=== PATIENT | male | born 1950 | race Caucasian/White ===

== ENCOUNTER 2016-11-12 03:31 | Emergency (ER) | payer BC ==
[2016-11-12] MEDS ORDERED: Albuterol 0.083% 2.5 MG/3 ML Neb Soln ONE ×2 (03:39→03:54)
[2016-11-12] MEDS ORDERED: Midazolam 1 MG/ML 2 ML SDV ONE ×2 (03:40→05:16)
[2016-11-12] MEDS ORDERED: fentaNYL 100 MCG/2 ML SDV ONE ×6 (03:40→06:50)
[2016-11-12] MEDS ORDERED: Lidocaine 2% with EPINEPHrine 1:100,000 20 ML MDV ONE ×2 (03:40→05:24)
--- NOTE | 2016-11-12 03:42 | EDM.PDOC ---
ED HISTORY OF PRESENT ILLNESS - General Chief Complaint: Chest Pain Stated Complaint: CHEST PAIN Time Seen by Provider: 11/12/16 03:31 Source of Information: Reports: Patient History Limitations: Reports: No limitations - History of Present Illness INITIAL COMMENTS - FREE TEXT/NARRATIVE: The patient presents with complaint of substernal aching and pressure and shortness of breath that began at about midnight and was up to 8/10 in severity initially. He was given 324 mg chewable aspirin and nitroglycerin 0.4 mg SL x 3 per EMS in transport and he takes 325 mg of aspirin daily as well. The chest pain improved to 2/10 on arrival after nitroglycerin. He denies a history of FL or stroke but has CAD with LOGAN x 3 at [facility] 3 years ago. He denies a history of DVT or PE. He has cardiac risk factors of smoking history and smoke 1 ppd for more than 20 years and quit 20 years ago, HTN, HLD, and obesity. - Related Data Allergies/ADRs: Allergies Allergy/AdvReac Type Severity Reaction Status Date / Time No Known Allergies Allergy Verified 11/12/16 03:36 Home Meds: Home Meds Clopidogrel Bisulfate [Clopidogrel] 75 mg PO QAM 10/17/13 [History] Ketoconazole [Nizoral 2% Crm] 1 applic TOP ASDIRECTED PRN 10/17/13 [History] Moexipril HCl [Moexipril] 15 mg PO QAM 10/17/13 [History] Nitroglycerin [Nitrostat] 0.4 mg PO ASDIRECTED PRN 10/17/13 [History] Simvastatin 20 mg PO QPM 10/17/13 [History] Aspirin 325 mg PO DAILY #90 tablet 10/18/13 [Rx] Metoprolol Succinate [Toprol XL] 25 mg PO DAILY 11/12/16 [History] Past Medical History Cardiovascular History: Reports: CAD, High cholesterol, Hypertension, Stents (3 stents in 2013 at [facility].) Social & Family History - Tobacco Use Years of Tobacco use: 30 Used Tobacco, but Quit: Yes Month Tobacco Last Used: November 12 Second Hand Smoke Exposure: No - Alcohol Use Days Per Week of Alcohol Use: 2 Number of Drinks Per Day: 0 Total Drinks Per Week: 0 - Recreational Drug Use Recreational Drug Use: No Recreational Drug Last Use: 3 coffee per day, occasional pop - Living Situation & Occupation Living situation: Reports: (In 1975, 2 children) 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 ED EXAM, GENERAL - Physical Exam Exam: See Below Exam Limited By: No limitations General Appearance: alert, WD/WN, no apparent distress Eye Exam: bilateral eye: EOMI, normal inspection, PERRL Ears: normal external exam, normal canal, hearing grossly normal, normal TMs Ear Exam: bilateral ear: auricle normal, canal normal, TM normal Nose: normal inspection, normal mucosa, no blood Throat/Mouth: Normal inspection, Normal lips, Normal teeth, Normal gums, Normal oropharynx, Normal voice, No airway compromise Head: atraumatic, normocephalic Neck: normal inspection, supple, non-tender, full range of motion. No: lymphadenopathy (L), lymphadenopathy (R) Respiratory/Chest: no accessory muscle use, chest non-tender, respiratory distress, wheezing (Expiratory, bilateral.). No: crackles, rales, rhonchi, stridor, retractions Cardiovascular: normal peripheral pulses, regular rate, rhythm, no edema, no gallop, no murmur, no rub Peripheral Pulses: 2+: radial (L), radial (R), dorsalis pedis (L), dorsalis pedis (R) GI/Abdominal: normal bowel sounds, soft, non tender, no organomegaly, no distention Back Exam: normal inspection, full range of motion. No: CVA tenderness (L), CVA tenderness (R), paraspinal tenderness, vertebral tenderness Extremities: normal inspection, normal range of motion, non-tender, no pedal edema, normal capillary refill Neurological: alert, oriented, CN II-XII intact, normal cognition, normal gait, normal reflexes, no motor/sensory deficits Psychiatric: normal affect, normal mood Skin Exam: Warm, Dry, Intact, Normal color, No rash Lymphatic: no adenopathy ED CHEST TUBE INSERTION - Chest Tube Insertion Chest tube location: right Site: anterior axillary line Tube size: 32Fr Prep: CDC/MBT guidelines, sterile drapes, betadine Local anesthesia - Lidocaine (Xylocaine): 2% with epi Local anesthetic volume: 5cc Gutiérrez of air heard: Yes Drainage: bloody, small amount Number of Attempts: 1 Tube sutured to skin: Yes Post procedure tube position confirmed by: by CXR, by provider Tube connected to suction: Yes Chest Tube Comment: Patient tolerated well with no complications. Tube advanced to 18 cm at the chest. EKG INTERPRETATION EKG Date: 11/12/16 Rhythm: NSR [place]: normal P-wave: present QRS: normal ST-T: normal QT: normal Comparison: NA - no prior EKG EKG Interpretation Comments: No ST elevation. Course - Vital Signs Last Recorded V/S: Last Vital Signs Temp 36.9 C 11/12/16 03:35 Pulse 93 11/12/16 04:28 Resp 20 11/12/16 04:28 BP 121/82 11/12/16 04:28 Pulse Ox 93 L 11/12/16 04:00 - Orders/Labs/Meds Orders: Active Orders 24 hr Category Date Time Status EKG Documentation Completion [RC] ASDIRECTED Care 11/12/16 03:36 Active RT Aerosol Therapy [RC] ASDIRECTED Care 11/12/16 03:53 Active RT Aerosol Therapy [RC] ASDIRECTED Care 11/12/16 04:13 Active Chest 1V Frontal [CR] Stat Exams 11/12/16 03:36 Taken Chest 1V Frontal [CR] Stat Exams 11/12/16 06:24 Taken Chest 1V Frontal [CR] Stat Exams 11/12/16 06:44 Taken Chest 1V Frontal [CR] Stat Exams 11/12/16 07:12 Ordered Chest PE [Ang Chest] [CT] Stat Exams 11/12/16 04:12 Taken Sodium Chloride 0.9% [Normal Saline] 1,000 ml Med 11/12/16 04:00 Active IV ASDIRECTED Medication Orders Sodium Chloride (Normal Saline) 1,000 mls @ 100 mls/hr IV ASDIRECTED HOLLIS Last Admin: 11/12/16 03:56 Dose: 100 mls/hr Labs: Laboratory Tests 11/12/16 11/12/16 11/12/16 Range/Units 03:45 03:45 03:45 WBC 6.8 (4.0-10.2) K/uL RBC 4.95 (4.33-5.41) M/uL Hgb 14.5 (13.1-16.8) g/dL Hct 44.5 (39.0-49.0) % MCV 89.9 (84.0-98.0) fL MCH 29.3 (28.2-33.3) pg MCHC 32.6 (31.7-36.0) g/dL RDW 14.3 H (11.2-14.1) % Plt Count 167 (150-350) K/uL Neut % (Auto) 65.2 (45.0-80.0) % Lymph % (Auto) 20.9 (10.0-50.0) % Jerome % (Auto) 8.7 (2.0-14.0) % Eos % (Auto) 4.9 (0.0-5.0) % Baso % (Auto) 0.3 (0.0-2.0) % Neut # (Auto) 4.43 (1.40-7.00) K/uL Lymph # (Auto) 1.42 (0.50-3.50) K/uL Jerome # (Auto) 0.59 (0.00-1.00) K/uL Eos # (Auto) 0.33 (0.00-0.50) K/uL Baso # (Auto) 0.02 (0.00-0.20) K/uL PT 11.0 (9.8-11.7) SEC INR 1.0 APTT 25.0 (23.5-30.0) SEC D-Dimer, Quantitative (0-400) ng/mL Sodium 141 (136-145) mmol/L Potassium 4.1 (3.5-5.1) mmol/L Chloride 108 H (98-107) mmol/L Carbon Dioxide 23.1 (21.0-32.0) mmol/L BUN 19 H (7-18) mg/dL Creatinine 0.81 (0.51-1.17) mg/dL Est Cr Clr Drug Dosing 104.12 mL/min Estimated GFR (MDRD) > 60 mL/min Glucose 166 H (74-106) mg/dL Calcium 8.0 L (8.5-10.1) mg/dL Total Bilirubin 0.4 (0.2-1.0) mg/dL AST 15 (15-37) U/L ALT 24 (12-78) U/L Alkaline Phosphatase 59 (46-116) IU/L Creatine Kinase 136 (26-308) U/L Creatine Kinase Index 2.7 H* (0.0-2.5) % CK-MB (CK-2) 3.70 H (0.00-3.60) ng/mL Troponin I 0.007 (0.000-0.056) ng/mL Total Protein 6.9 (6.4-8.2) g/dL Albumin 3.5 (3.4-5.0) g/dL 11/12/16 Range/Units 03:45 WBC (4.0-10.2) K/uL RBC (4.33-5.41) M/uL Hgb (13.1-16.8) g/dL Hct (39.0-49.0) % MCV (84.0-98.0) fL MCH (28.2-33.3) pg MCHC (31.7-36.0) g/dL RDW (11.2-14.1) % Plt Count (150-350) K/uL Neut % (Auto) (45.0-80.0) % Lymph % (Auto) (10.0-50.0) % Jerome % (Auto) (2.0-14.0) % Eos % (Auto) (0.0-5.0) % Baso % (Auto) (0.0-2.0) % Neut # (Auto) (1.40-7.00) K/uL Lymph # (Auto) (0.50-3.50) K/uL Jerome # (Auto) (0.00-1.00) K/uL Eos # (Auto) (0.00-0.50) K/uL Baso # (Auto) (0.00-0.20) K/uL PT (9.8-11.7) SEC INR APTT (23.5-30.0) SEC D-Dimer, Quantitative 622 H (0-400) ng/mL Sodium (136-145) mmol/L Potassium (3.5-5.1) mmol/L Chloride (98-107) mmol/L Carbon Dioxide (21.0-32.0) mmol/L BUN (7-18) mg/dL Creatinine (0.51-1.17) mg/dL Est Cr Clr Drug Dosing mL/min Estimated GFR (MDRD) mL/min Glucose (74-106) mg/dL Calcium (8.5-10.1) mg/dL Total Bilirubin (0.2-1.0) mg/dL AST (15-37) U/L ALT (12-78) U/L Alkaline Phosphatase (46-116) IU/L Creatine Kinase (26-308) U/L Creatine Kinase Index (0.0-2.5) % CK-MB (CK-2) (0.00-3.60) ng/mL Troponin I (0.000-0.056) ng/mL Total Protein (6.4-8.2) g/dL Albumin (3.4-5.0) g/dL Meds: Medications Generic Name Dose Route Start Last Admin Trade Name Freq PRN Reason Stop Dose Admin Sodium Chloride 1,000 mls @ 100 mls/hr 11/12/16 04:00 11/12/16 03:56 Normal Saline IV 100 mls/hr ASDIRECTED HOLLIS Administration Discontinued Medications Generic Name Dose Route Start Last Admin Trade Name Freq PRN Reason Stop Dose Admin Albuterol Confirm 11/12/16 03:39 11/12/16 03:44 Proventil Neb Soln Administered 11/12/16 03:40 2.5 mg Dose Administration 2.5 mg .ROUTE .STK-MED ONE Albuterol 2.5 mg 11/12/16 03:53 11/12/16 03:55 Proventil Neb Soln NEB 11/12/16 03:54 2.5 mg ONETIME ONE Administration Albuterol Confirm 11/12/16 03:54 11/12/16 04:00 Proventil Neb Soln Administered 11/12/16 03:55 Not Given Dose 2.5 mg .ROUTE .STK-MED ONE Albuterol/Ipratropium 3 ml 11/12/16 04:13 11/12/16 04:15 Duoneb 3.0-0.5 Mg/3 Ml NEB 11/12/16 04:14 3 ml ONETIME ONE Administration Fentanyl Confirm 11/12/16 05:23 Sublimaze Administered 11/12/16 05:24 Dose 100 mcg .ROUTE .STK-MED ONE Fentanyl Confirm 11/12/16 05:33 Sublimaze Administered 11/12/16 05:34 Dose 100 mcg .ROUTE .STK-MED ONE Fentanyl Confirm 11/12/16 06:50 Sublimaze Administered 11/12/16 06:51 Dose 100 mcg .ROUTE .STK-MED ONE Iopamidol Confirm 11/12/16 04:25 11/12/16 05:04 Isovue-370 (76%) Administered 11/12/16 04:26 100 ml Dose Administration 100 ml .ROUTE .STK-MED ONE Lidocaine/Epinephrine Confirm 11/12/16 05:24 Xylocaine 2% With Epinephrine 1:100,000 Administered 11/12/16 05:25 Dose 20 ml .ROUTE .STK-MED ONE Midazolam HCl Confirm 11/12/16 05:16 Versed 1 Mg/Ml Administered 11/12/16 05:17 Dose 2 mg .ROUTE .STK-MED ONE - Radiology Interpretation Free Text/Narrative:: CXR revealed Right sided pneumothorax and CT chest revealed increased pneumothorax with tension and no evidence of PE. Departure - Departure Time of Disposition: 06:09 Disposition: DC/Tfer to Acute Hospital 02 Reason for Transfer *Q: Other (Higher level of care required, General and Cardiothoracic Surgery) Clinical Impression: Tension pneumothorax, spontaneous Referrals: PCP,Unknown [Primary Care Provider] - Forms: ED Department Discharge - My Orders Last 24 Hours: My Active Orders 11/12/16 03:36 EKG Documentation Completion [RC] ASDIRECTED Chest 1V Frontal [CR] Stat 11/12/16 03:53 RT Aerosol Therapy [RC] ASDIRECTED 11/12/16 04:00 Sodium Chloride 0.9% [Normal Saline] 1,000 ml IV ASDIRECTED 11/12/16 04:12 Chest PE [Ang Chest] [CT] Stat 11/12/16 04:13 RT Aerosol Therapy [RC] ASDIRECTED 11/12/16 06:24 Chest 1V Frontal [CR] Stat 11/12/16 06:44 Chest 1V Frontal [CR] Stat 11/12/16 07:12 Chest 1V Frontal [CR] Stat - Assessment/Plan Last 24 Hours: My Active Orders 11/12/16 03:36 EKG Documentation Completion [RC] ASDIRECTED Chest 1V Frontal [CR] Stat 11/12/16 03:53 RT Aerosol Therapy [RC] ASDIRECTED 11/12/16 04:00 Sodium Chloride 0.9% [Normal Saline] 1,000 ml IV ASDIRECTED 11/12/16 04:12 Chest PE [Ang Chest] [CT] Stat 11/12/16 04:13 RT Aerosol Therapy [RC] ASDIRECTED 11/12/16 06:24 Chest 1V Frontal [CR] Stat 11/12/16 06:44 Chest 1V Frontal [CR] Stat 11/12/16 07:12 Chest 1V Frontal [CR] Stat Assessment:: Right Sided Spontaneous Tension Pneumothorax Plan: 1. Given aspirin 324 mg oral per EMS in transport. 2. Given nitroglycerin 0.4 mg SL x 3 per EMS in transport with reported improvement in pain from 02/26 to 08/29 per patient. 3. Normal saline at 100 mL/hour began in ER. 4. Conscious sedation given with Versed 2 mg IV and Fentanyl 50 micrograms x 3 to total 150 micrograms with constant monitoring of pulse oximetry and telemetry for chest tube placement. 5. 32 Malagasy Right Sided chest tube placed as described in procedure note above and wound cleansed with Chlorhexidine and Vaseline applied followed by gauze dressing, chest tube connected to water seal and suction chamber. 6. Post-procedure CXR showed chest tube in pleural space but kinked. 7. Dressing removed and wound cleansed with betadine and sutures removed and chest tube pulled back to 12 cm and secured in place as above. 8. Repeat CXR showed kink still in place. 9. Again sutures removed and chest tube removed. Wound and skin prepped with betadine and sterile drapes used to make sterile field again. 10. Patient given another 100 micrograms of Fentanyl. 11. New 32 cm sterile chest tube was inserted with large Breann clamp and gently advanced to depth of 10 cm and return of air and small volume of blood returned and chest tube secured in place with 0 Silk suture to skin and 3-0 Ethilon nylon sutures used to close wound. Chest tube connected to water seal chamber. Vaseline applied to wound followed by sterile Telfa and reinforced dressing. 12. Called to request transfer with on-call general surgeon at [facility] Dr. Nicole who agrees to accept and admit. 13. Transfer per EMS with chest tube connected to water seal chamber with suction, continuous pulse oximetry and telemetry, and morphine 2-4 mg IV as needed for pain in transit.
[2016-11-12] MEDS ORDERED: Albuterol 0.083% 2.5 MG/3 ML Neb Soln NEB ONE (03:53)
[2016-11-12] MEDS ORDERED: Sodium Chloride 0.9% 1,000 ML IV SCH (04:00)
[2016-11-12 04:12] LABS: CHLORIDE,CL 108 mmol/L (98-107); SODIUM,NA 141 mmol/L (136-145)
[2016-11-12] MEDS ORDERED: Albuterol/Ipratropium 3.0-0.5 MG/3 ML Neb Soln NEB ONE (04:13)
[2016-11-12] MEDS ORDERED: Iopamidol 755 Mg/ML 100 ML Bottle ONE (04:25)
[2016-11-12 09:02] VITALS: BP 123/70
== END 2016-11-12 07:35 ==
LOC: LL.ED 03:31
DX: J93.0 Spontaneous tension pneumothorax (principal); I11.9 Hypertensive heart disease without heart failure; I25.10 Atherosclerotic heart disease of native coronary artery without angina pectoris; E78.00 Pure hypercholesterolemia, unspecified; Z95.5 Presence of coronary angioplasty implant and graft; Z79.899 Other long term (current) drug therapy
CPT/HCPCS: 36415; 71010; 71275; 80053; 82550; 82553; 84484; 85025; 85379; 85610; 85730; 93005; 94640; 96361; 96374; 96375; 96376; 99291; 99292; J2250; J3010; J7030; J7620; Q9967; 94664